=== PATIENT | male | born 1965 | race Caucasian/White ===

== ENCOUNTER 2023-11-11 23:18 | Inpatient (IN) | payer MEDICAID, OTHER ==
--- NOTE | 2023-11-12 01:15 | ED ---
Psych HPI - General Source: EMS, RN notes reviewed, old records reviewed Mode of arrival: EMS Limitations: no limitations - History of Present Illness MD Complaint: suicidal ideation, feels depressed, other (Petition) Associated Psychiatric Symptoms: none History of same: Yes Quality: constant Improves With: none Worsens With: none Context: significant life stressor Associated Symptoms: denies other symptoms Treatments Prior to Arrival: placed on mental health hold If Self Harm: admits thoughts of self harm <Vinod Mann - Last Filed: 11/12/23 01:56> <Vinod Malave - Last Filed: 11/12/23 12:14> - General Chief Complaint: Psychiatric Symptoms Stated Complaint: sucidial-mental health Time Seen by Provider: 11/11/23 23:49 - History of Present Illness Initial Comments: This is a 58-year-old male to ER for evaluation of psychiatric illness patient is presenting under petition for psychiatric evaluation and treatment (Vinod Cantu) - Related Data Allergies Allergy/AdvReac Type Severity Reaction Status Date / Time No Known Allergies Allergy Verified 11/11/23 23:32 Review of Systems ROS Other: All systems not noted in ROS Statement are negative. <Vinod Mann - Last Filed: 11/12/23 01:56> ROS Other: All systems not noted in ROS Statement are negative. <Vinod Malave - Last Filed: 11/12/23 12:14> ROS Statement: Those systems with pertinent positive or pertinent negative responses have been documented in the HPI. Past Medical History Past Medical History: No Reported History History of Any Multi-Drug Resistant Organisms: None Reported Past Surgical History: Orthopedic Surgery Past Psychological History: Depression Smoking Status: Never smoker Past Alcohol Use History: Occasional Past Drug Use History: None Reported <Vinod Mann - Last Filed: 11/12/23 01:56> General Exam Limitations: no limitations General appearance: alert, in no apparent distress Head exam: Present: atraumatic, normocephalic, normal inspection Eye exam: Present: normal appearance, PERRL, EOMI. Absent: scleral icterus, conjunctival injection, periorbital swelling ENT exam: Present: normal exam, mucous membranes moist Neck exam: Present: normal inspection. Absent: tenderness, meningismus, lymphadenopathy Respiratory exam: Present: normal lung sounds bilaterally. Absent: respiratory distress, wheezes, rales, rhonchi, stridor Cardiovascular Exam: Present: regular rate, normal rhythm, normal heart sounds. Absent: systolic murmur, diastolic murmur, rubs, gallop, clicks GI/Abdominal exam: Present: soft, normal bowel sounds. Absent: distended, tenderness, guarding, rebound, rigid Extremities exam: Present: normal inspection, full ROM, normal capillary refill. Absent: tenderness, pedal edema, joint swelling, calf tenderness Back exam: Present: normal inspection Neurological exam: Present: alert, oriented X3, CN II-XII intact Psychiatric exam: Present: normal affect, normal mood Skin exam: Present: warm, dry, intact, normal color. Absent: rash <Vinod Mann - Last Filed: 11/12/23 01:56> Course <Vinod Mann - Last Filed: 11/12/23 01:56> Vital Signs 11/11/23 11/12/23 23:30 07:54 Temperature 97.8 F Pulse Rate 91 68 Respiratory 18 16 Rate Blood Pressure 131/74 130/60 O2 Sat by Pulse 98 98 Oximetry - Reevaluation(s) Reevaluation #1: 11/12/23 01:56 Medical records reviewed (Vinod Mann) Reevaluation #2: 11/12/23 01:56 Medically cleared for psychiatric evaluation (Vinod Mann) Medical Decision Making - Lab Data Result diagrams: 11/12/23 10:02 11/12/23 10:02 <Vinod Malave - Last Filed: 11/12/23 12:14> - Medical Decision Making Was patient admitted / discharged? Hospital course, mention meds given and route, prescriptions, significant lab abnormalities, going to OR and other pertinent info. @ -Patient was signed out to me by Dr. Mann. EPS evaluated the patient and EPS spoke to me about the evaluation afterwards. They recommended admission. Patient was able to sign himself in Undiagnosed new problem with uncertain prognosis? @ -No Drug Therapy requiring intensive monitoring for toxicity (Heparin, Nitro, Insulin, Cardizem)? @ -No Were any procedures done? @ -No Diagnosis/symptom? @ -Depression, suicidal ideations Acute, or Chronic, or Acute on Chronic? @ -Acute Uncomplicated (without systemic symptoms) or Complicated (systemic symptoms)? @ -Complicated Side effects of treatment? @ -No Exacerbation, Progression, or Severe Exacerbation? @ -No Poses a threat to life or bodily function? How? (Chest pain, [place], [place], pneumonia, PE, COPD, DKA, ARF, appy, cholecystitis, CVA, Diverticulitis, Homicidal, Suicidal, threat to staff... and all critical care pts) @ -No (Vinod Malave) - Lab Data Lab Results 11/12/23 11/12/23 11/12/23 Range/Units 10:02 10:02 10:02 WBC 5.4 (3.8-10.6) k/uL RBC 4.30 (4.30-5.90) m/uL Hgb 12.2 L (13.0-17.5) gm/dL Hct 38.6 L (39.0-53.0) % MCV 89.8 (80.0-100.0) fL MCH 28.5 (25.0-35.0) pg MCHC 31.7 (31.0-37.0) g/dL RDW 13.9 (11.5-15.5) % Plt Count 194 (150-450) k/uL MPV 7.2 Neutrophils % (Manual) 76 % Lymphocytes % (Manual) 11 % Monocytes % (Manual) 12 % Eosinophils % (Manual) 1 % Neutrophils # (Manual) 4.10 (1.3-7.7) k/uL Lymphocytes # (Manual) 0.59 L (1.0-4.8) k/uL Monocytes # (Manual) 0.65 (0-1.0) k/uL Eosinophils # (Manual) 0.05 (0-0.7) k/uL Nucleated RBCs 0 (0-0) /100 WBC Manual Slide Review Performed RBC Morphology Normal Sodium 142 (137-145) mmol/L Potassium 3.9 (3.5-5.1) mmol/L Chloride 107 (98-107) mmol/L Carbon Dioxide 21 L (22-30) mmol/L Anion Gap 14 mmol/L BUN 11 (9-20) mg/dL Creatinine 0.64 L (0.66-1.25) mg/dL Est GFR (CKD-EPI)AfAm >90 (>60 ml/min/1.73 sqM) Est GFR (CKD-EPI)NonAf >90 (>60 ml/min/1.73 sqM) Glucose 109 H (74-99) mg/dL Calcium 9.3 (8.4-10.2) mg/dL Total Bilirubin 0.6 (0.2-1.3) mg/dL AST 41 (17-59) U/L ALT 27 (4-49) U/L Alkaline Phosphatase 117 (38-126) U/L Total Protein 7.4 (6.3-8.2) g/dL Albumin 4.6 (3.5-5.0) g/dL Urine Color Light Yellow Urine Appearance Clear (Clear) Urine pH 7.5 (5.0-8.0) Ur Specific [place] 1.016 (1.001-1.035) Urine Protein Negative (Negative) Urine Glucose (UA) Negative (Negative) Urine Ketones Trace H (Negative) Urine Blood Negative (Negative) Urine Nitrite Negative (Negative) Urine Bilirubin Negative (Negative) Urine Urobilinogen <2.0 (<2.0) mg/dL Ur Leukocyte Esterase Negative (Negative) Influenza Type A (PCR) (Not Detectd) Influenza Type B (PCR) (Not Detectd) RSV (PCR) (Not Detectd) SARS-CoV-2 (PCR) (Not Detectd) 11/12/23 Range/Units 10:02 WBC (3.8-10.6) k/uL RBC (4.30-5.90) m/uL Hgb (13.0-17.5) gm/dL Hct (39.0-53.0) % MCV (80.0-100.0) fL MCH (25.0-35.0) pg MCHC (31.0-37.0) g/dL RDW (11.5-15.5) % Plt Count (150-450) k/uL MPV Neutrophils % (Manual) % Lymphocytes % (Manual) % Monocytes % (Manual) % Eosinophils % (Manual) % Neutrophils # (Manual) (1.3-7.7) k/uL Lymphocytes # (Manual) (1.0-4.8) k/uL Monocytes # (Manual) (0-1.0) k/uL Eosinophils # (Manual) (0-0.7) k/uL Nucleated RBCs (0-0) /100 WBC Manual Slide Review RBC Morphology Sodium (137-145) mmol/L Potassium (3.5-5.1) mmol/L Chloride (98-107) mmol/L Carbon Dioxide (22-30) mmol/L Anion Gap mmol/L BUN (9-20) mg/dL Creatinine (0.66-1.25) mg/dL Est GFR (CKD-EPI)AfAm (>60 ml/min/1.73 sqM) Est GFR (CKD-EPI)NonAf (>60 ml/min/1.73 sqM) Glucose (74-99) mg/dL Calcium (8.4-10.2) mg/dL Total Bilirubin (0.2-1.3) mg/dL AST (17-59) U/L ALT (4-49) U/L Alkaline Phosphatase (38-126) U/L Total Protein (6.3-8.2) g/dL Albumin (3.5-5.0) g/dL Urine Color Urine Appearance (Clear) Urine pH (5.0-8.0) Ur Specific [place] (1.001-1.035) Urine Protein (Negative) Urine Glucose (UA) (Negative) Urine Ketones (Negative) Urine Blood (Negative) Urine Nitrite (Negative) Urine Bilirubin (Negative) Urine Urobilinogen (<2.0) mg/dL Ur Leukocyte Esterase (Negative) Influenza Type A (PCR) Not Detected (Not Detectd) Influenza Type B (PCR) Not Detected (Not Detectd) RSV (PCR) Not Detected (Not Detectd) SARS-CoV-2 (PCR) Not Detected (Not Detectd) Disposition <Vinod Mann - Last Filed: 11/12/23 01:56> Time of Disposition: 11:26 <Vinod Malave - Last Filed: 11/12/23 12:14> Clinical Impression: Depression, Suicidal ideation Disposition: TRANSFER TO PSYCH HOSP/UNIT Referrals: George Branard MD [Primary Care Provider] - 1-2 days
[2023-11-12 10:32] LABS: HCT 38.6 % (39.0-53.0); HGB 12.2 gm/dL (13.0-17.5); MCH 28.5 pg (25.0-35.0); MCHC 31.7 g/dL (31.0-37.0); MCV 89.8 fL (80.0-100.0); Mean Platelet Volume 7.2; Platelet Count 194 k/uL (150-450); RDW 13.9 % (11.5-15.5); WBC 5.4 k/uL (3.8-10.6)
[2023-11-12 10:42] LABS: ALT 27 U/L (4-49); AST 41 U/L (17-59); African American GFR (CKD) >90 (>60 ml/min/1.73 sqM); Albumin 4.6 g/dL (3.5-5.0); Alkaline Phosphatase 117 U/L (38-126); Anion Gap 14 mmol/L; Blood Urea Nitrogen 11 mg/dL (9-20); Calcium 9.3 mg/dL (8.4-10.2); Carbon Dioxide 21 mmol/L (22-30); Chloride 107 mmol/L (98-107); Glucose 109 mg/dL (74-99); Non-African American GFR(CKD) >90 (>60 ml/min/1.73 sqM); Potassium 3.9 mmol/L (3.5-5.1); Sodium 142 mmol/L (137-145); Total Bilirubin 0.6 mg/dL (0.2-1.3); Total Protein 7.4 g/dL (6.3-8.2)
[2023-11-12 10:45] LABS: Appearance,Urine Clear (Clear); Bilirubin,Urine Negative (Negative); Blood,Urine Negative (Negative); Color,Urine Light Yellow; Glucose,Urine (UA) Negative (Negative); Ketones,Urine Trace (Negative); Leukocyte Esterase,Urine Negative (Negative); Nitrite,Urine Negative (Negative); PH, Urine 7.5 (5.0-8.0); Protein,Urine Negative (Negative); Specific Gravity,Urine 1.016 (1.001-1.035); Urobilinogen,Urine <2.0 mg/dL (<2.0)
[2023-11-12 11:28] LABS: Eosinophils # (M) 0.05 k/uL (0-0.7); Lymphocytes # (M) 0.59 k/uL (1.0-4.8); Monocytes # (M) 0.65 k/uL (0-1.0); Neutrophils % (M) 76 %; Nucleated Red Blood Cells 0 /100 WBC (0-0); RBC Morphology Normal; Total Cells Counted 100
[2023-11-12] MEDS ORDERED: LORazepam 2 MG/ML INJ IM PRN (14:49)
[2023-11-12] MEDS ORDERED: ACETAMINOPHEN TAB 325 MG TAB PO PRN (14:49)
[2023-11-12] MEDS ORDERED: MAG HYDROX/AL HYDROX/SIMETH 30 ML CUP PO PRN (14:49)
[2023-11-12] MEDS ORDERED: MAGNESIUM HYDROXIDE 2,400 MG/30 ML CUP PO PRN (14:49)
[2023-11-12] MEDS ORDERED: LORazepam 1 MG TAB PO PRN (14:49)
[2023-11-12] MEDS ORDERED: IBUPROFEN 600 MG TAB PO PRN (14:49)
[2023-11-12] MEDS ORDERED: FUROSEMIDE 20 MG TAB PO PRN (15:04)
[2023-11-12] MEDS: LISINOPRIL-HCTZ 20-25 MG 1 EACH TAB PO SCH (16:53)
[2023-11-12] MEDS: NICOTINE 14MG/24HR PATCH TRANSDERM SCH (16:53)
[2023-11-12] MEDS: DULoxetine HCL 30 MG CAPSULE.DR PO SCH (16:55)
[2023-11-12] MEDS: FOLIC ACID 1 MG TAB PO SCH (16:55)
[2023-11-12] MEDS: amLODIPine 10 MG TAB PO SCH (16:55)
[2023-11-12] MEDS: ATORVASTATIN 10 MG TAB PO SCH (20:04)
[2023-11-12] MEDS: GABAPENTIN 400 MG CAP PO SCH (20:04)
[2023-11-13 00:04] LABS: Amphetamine Screen,Urine Not Detected (NotDetected); Barbiturate Screen,Urine Not Detected (NotDetected); Benzodiazepines Screen,Urine Not Detected (NotDetected); Cocaine Screen,Urine Not Detected (NotDetected); Methadone Screen, Urine Not Detected (NotDetected); Opiate Screen,Urine Detected (NotDetected); Oxycodone Screen, Urine Not Detected (NotDetected); Phencyclidine Screen,Urine Not Detected (NotDetected); Tricyclic Antidepressant,Urine Not Detected (NotDetected); Urn Cannabinoid Scrn Not Detected (NotDetected)
[2023-11-13] MEDS ORDERED: CYCLOBENZAPRINE 5 MG TAB PO PRN (12:22)
--- NOTE | 2023-11-13 12:31 | P.MDCNMH ---
History of Present Illness H&P Date: 11/13/23 Chief Complaint: Suicidal ideation * 58-year-old gentleman with past medical history significant for hypertension, history of depression, presents to the emergency department for psychiatric illness and evaluation. Patient presented at the [facility] for psychiatric evaluation * Patient was admitted to behavioral unit. Blood work obtained showed WBC of 5.4 hemoglobin 12.2 platelet count of 194 * Serum chemistry obtained sodium 142 potassium 3.9 At 21 BUN 11 creatinine 0.64 liver profile within normal limits TSH 1.7160 * Urinalysis obtained showed trace amount of ketones, urine drug screen positive for opioids * Patient tested negative for influenza, coronavirus and RSV REVIEW OF SYSTEMS: Depressed mood CONSTITUTIONAL: No fever, no malaise, no fatigue. HEENT: No recent visual problems or hearing problems. Denied any sore throat. CARDIOVASCULAR: No chest pain, orthopnea, PND, no palpitations, no syncope. PULMONARY: No shortness of breath, no cough, no hemoptysis. GASTROINTESTINAL: No diarrhea, no nausea, no vomiting, no abdominal pain. NEUROLOGICAL: No headaches, no weakness, no numbness. HEMATOLOGICAL: Denies any bleeding or petechiae. GENITOURINARY: Denies any burning micturition, frequency, or urgency. MUSCULOSKELETAL/RHEUMATOLOGICAL: Denies any joint pain, swelling, or any muscle pain. ENDOCRINE: Denies any polyuria or polydipsia. PHYSICAL EXAMINATION: GENERAL: The patient is alert and oriented x3, not in any acute distress. Well developed, well nourished. HEENT: Pupils are round and equally reacting to light. EOMI. CARDIOVASCULAR: S1 and S2 present. Tachycardia PULMONARY: Chest is clear to auscultation, no wheezing or crackles. ABDOMEN: Soft, nontender, nondistended, normoactive bowel sounds. No palpable organomegaly. MUSCULOSKELETAL: No joint swelling or deformity. EXTREMITIES: No cyanosis, clubbing, or pedal edema. NEUROLOGICAL: Gross neurological examination did not reveal any focal deficits. SKIN: No rashes. Assessment and plan * Depression with suicidal ideation * Hypertension * Dyslipidemia * Chronic neuropathic pain * Degenerative disease of spine with chronic back pain * In regards to history of depression continue to manage in behavioral health unit, maintain maximum safety precautions * Regards to history of hypertension continue home regimen, medication rec onciliation completed * Regards to chronic neuropathic pain continue home regimen Past Medical History Past Medical History: Hyperlipidemia, Hypertension History of Any Multi-Drug Resistant Organisms: None Reported Past Surgical History: Back Surgery, Orthopedic Surgery Additional Past Surgical History / Comment(s): pt reports having 4 surgeries on his spine over several years, but cannot recall when he had the last surgery. pt also reports cyst removal on right moravian but is unable to recall when. pt reports removal of left breast tissue as well as removal of compound nevus on h is back in 1991. Past Anesthesia/Blood Transfusion Reactions: No Reported Reaction Past Psychological History: Depression Smoking Status: Former smoker Past Alcohol Use History: Occasional Additional Past Alcohol Use History / Comment(s): pt reports drinking for the past 2 - 3 days after 5 months without ETOH. Past Drug Use History: None Reported - Past Family History Mother Family Medical History: Diabetes Mellitus, Hypertension, Renal Disease Additional Family Medical History / Comment(s): pt reports that mother has history significant for cellulitis, diabetes mellitus, HTN, and renal failure. Father Family Medical History: Cancer, Hypertension Additional Family Medical History / Comment(s): pt reports that father had history significant for HTN, esophageal cancer, and prostate cancer. pt reports father is from MRSA infection 11/09/2006 Medications and Allergies Home Medications Medication Instructions Recorded Confirmed Type Cyclobenzaprine [Flexeril] 5 mg PO DAILY 11/12/23 11/12/23 History DULoxetine HCL [Cymbalta] 30 mg PO DAILY 11/12/23 11/12/23 History Folic Acid 1 mg PO DAILY 11/12/23 11/12/23 History Furosemide [Lasix] 20 mg PO DAILY PRN 11/12/23 11/12/23 History Gabapentin [Neurontin] 800 mg PO BID 11/12/23 11/12/23 History Lisinopril-Hctz 20-25 mg 1 tab PO DAILY 11/12/23 11/12/23 History [Zestoretic 20-25] Simvastatin [Zocor] 10 mg PO HS 11/12/23 11/12/23 History amLODIPine [Norvasc] 10 mg PO DAILY 11/12/23 11/12/23 History Allergies Allergy/AdvReac Type Severity Reaction Status Date / Time No Known Allergies Allergy Verified 11/12/23 12:46 Physical Exam Vitals: Vital Signs Temp Pulse Resp BP Pulse Ox 11/13/23 08:13 115 H 129/76 11/12/23 16:00 98.2 F 111 H 14 154/83 97 Intake and Output 11/12/23 11/13/23 11/13/23 22:59 06:59 14:59 Other: Weight 128.622 kg Cranial Nerve Examination - Cranial Nerves Cranial Nerve II- Optic: Intact Cranial Nerve III- Oculomotor: Intact Cranial Nerve IV- Trochlear: Intact Cranial Nerve V- Trigeminal: Intact Cranial Nerve - Abducens: Intact Cranial Nerve VII- Facial: Intact Cranial Nerve VIII- Auditory: Intact Cranial Nerve IX- Glossopharyngeal: Intact Cranial Nerve X- Vagus: Intact Cranial Nerve XI- Accessory: Intact Cranial Nerve XII- Hypoglossal: Intact Results CBC & Chem 7: 11/12/23 10:02 11/12/23 10:02 Labs: Abnormal Lab Results - Last 24 Hours (Table) 11/12/23 11/12/23 11/12/23 Range/Units 10:02 10:02 10:02 Hgb 12.2 L (13.0-17.5) gm/dL Hct 38.6 L (39.0-53.0) % Lymphocytes # (Manual) 0.59 L (1.0-4.8) k/uL Carbon Dioxide 21 L (22-30) mmol/L Creatinine 0.64 L (0.66-1.25) mg/dL Glucose 109 H (74-99) mg/dL Urine Ketones Trace H (Negative) Urine Opiates Screen (NotDetected) 11/12/23 Range/Units 22:02 Hgb (13.0-17.5) gm/dL Hct (39.0-53.0) % Lymphocytes # (Manual) (1.0-4.8) k/uL Carbon Dioxide (22-30) mmol/L Creatinine (0.66-1.25) mg/dL Glucose (74-99) mg/dL Urine Ketones (Negative) Urine Opiates Screen Detected H (NotDetected)
--- NOTE | 2023-11-13 13:01 | P.HP ---
Psychiatric H&P - . H&P Date: 11/13/23 History & Physical: Allergies Allergy/AdvReac Type Severity Reaction Status Date / Time No Known Allergies Allergy Verified 11/12/23 12:46 Vital Signs Temp 98.2 F 11/12/23 16:00 Pulse 115 H 11/13/23 08:13 Resp 14 11/12/23 16:00 BP 129/76 11/13/23 08:13 Pulse Ox 97 11/12/23 16:00 FiO2 Intake & Output 11/12/23 11/13/23 11/13/23 18:59 06:59 18:59 Weight 128.622 kg Laboratory Last Values WBC 5.4 k/uL (3.8-10.6) 11/12/23 10:02 RBC 4.30 m/uL (4.30-5.90) 11/12/23 10:02 Hgb 12.2 gm/dL (13.0-17.5) L 11/12/23 10:02 Hct 38.6 % (39.0-53.0) L 11/12/23 10:02 MCV 89.8 fL (80.0-100.0) 11/12/23 10:02 MCH 28.5 pg (25.0-35.0) 11/12/23 10:02 MCHC 31.7 g/dL (31.0-37.0) 11/12/23 10:02 RDW 13.9 % (11.5-15.5) 11/12/23 10:02 Plt Count 194 k/uL (150-450) 11/12/23 10:02 MPV 7.2 11/12/23 10:02 Neutrophils % (Manual) 76 % 11/12/23 10:02 Lymphocytes % (Manual) 11 % 11/12/23 10:02 Monocytes % (Manual) 12 % 11/12/23 10:02 Eosinophils % (Manual) 1 % 11/12/23 10:02 Neutrophils # (Manual) 4.10 k/uL (1.3-7.7) 11/12/23 10:02 Lymphocytes # (Manual) 0.59 k/uL (1.0-4.8) L 11/12/23 10:02 Monocytes # (Manual) 0.65 k/uL (0-1.0) 11/12/23 10:02 Eosinophils # (Manual) 0.05 k/uL (0-0.7) 11/12/23 10:02 Nucleated RBCs 0 /100 WBC (0-0) 11/12/23 10:02 Manual Slide Review Performed 11/12/23 10:02 RBC Morphology Normal 11/12/23 10:02 Sodium 142 mmol/L (137-145) 11/12/23 10:02 Potassium 3.9 mmol/L (3.5-5.1) 11/12/23 10:02 Chloride 107 mmol/L (98-107) 11/12/23 10:02 Carbon Dioxide 21 mmol/L (22-30) L 11/12/23 10:02 Anion Gap 14 mmol/L 11/12/23 10:02 BUN 11 mg/dL (9-20) 11/12/23 10:02 Creatinine 0.64 mg/dL (0.66-1.25) L 11/12/23 10:02 Est GFR (CKD-EPI)AfAm >90 (>60 ml/min/1.73 sqM) 11/12/23 10:02 Est GFR (CKD-EPI)NonAf >90 (>60 ml/min/1.73 sqM) 11/12/23 10:02 Glucose 109 mg/dL (74-99) H 11/12/23 10:02 Calcium 9.3 mg/dL (8.4-10.2) 11/12/23 10:02 Total Bilirubin 0.6 mg/dL (0.2-1.3) 11/12/23 10:02 AST 41 U/L (17-59) 11/12/23 10:02 ALT 27 U/L (4-49) 11/12/23 10:02 Alkaline Phosphatase 117 U/L (38-126) 11/12/23 10:02 Total Protein 7.4 g/dL (6.3-8.2) 11/12/23 10:02 Albumin 4.6 g/dL (3.5-5.0) 11/12/23 10:02 TSH 1.160 mIU/L (0.465-4.680) 11/12/23 10:02 Urine Color Light Yellow 11/12/23 10:02 Urine Appearance Clear (Clear) 11/12/23 10:02 Urine pH 7.5 (5.0-8.0) 11/12/23 10:02 Ur Specific [place] 1.016 (1.001-1.035) 11/12/23 10:02 Urine Protein Negative (Negative) 11/12/23 10:02 Urine Glucose (UA) Negative (Negative) 11/12/23 10:02 Urine Ketones Trace (Negative) H 11/12/23 10:02 Urine Blood Negative (Negative) 11/12/23 10:02 Urine Nitrite Negative (Negative) 11/12/23 10:02 Urine Bilirubin Negative (Negative) 11/12/23 10:02 Urine Urobilinogen <2.0 mg/dL (<2.0) 11/12/23 10:02 Ur Leukocyte Esterase Negative (Negative) 11/12/23 10:02 Urine Opiates Screen Detected (NotDetected) H 11/12/23 22:02 Ur Oxycodone Screen Not Detected (NotDetected) 11/12/23 22:02 Urine Methadone Screen Not Detected (NotDetected) 11/12/23 22:02 Ur Barbiturates Screen Not Detected (NotDetected) 11/12/23 22:02 U Tricyclic Antidepress Not Detected (NotDetected) 11/12/23 22:02 Ur Phencyclidine Scrn Not Detected (NotDetected) 11/12/23 22:02 Ur Amphetamines Screen Not Detected (NotDetected) 11/12/23 22:02 U Methamphetamines Scrn Not Detected (NotDetected) 11/12/23 22:02 U Benzodiazepines Scrn Not Detected (NotDetected) 11/12/23 22:02 Urine Cocaine Screen Not Detected (NotDetected) 11/12/23 22:02 U Marijuana (THC) Screen Not Detected (NotDetected) 11/12/23 22:02 Influenza Type A (PCR) Not Detected (Not Detectd) 11/12/23 10:02 Influenza Type B (PCR) Not Detected (Not Detectd) 11/12/23 10:02 RSV (PCR) Not Detected (Not Detectd) 11/12/23 10:02 SARS-CoV-2 (PCR) Not Detected (Not Detectd) 11/12/23 10:02 11/13/23 08:52 IDENTIFYING DATA: Patient is a 58-year-old male. Lives in a house with his mother. Single, no children. Unemployed. 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 HPI: Patient presented to the hospital on 11/11. As per EPS note, "Cl sitting in bed, A/O x4 brought in with PET via PD due SI with plan to use a firearm. Firearm was found by PD loaded. Cl reports being brought in alongside of their mother who is being admitted medically. 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 These conditions have made life overwhelming for the Cl. Cl's mother verified that cl made statement to commit suicide in the backyard per the PET. Cl presents depressed, anxious, guarded, poor eye contact, flat affect, overwhelmed, reports self medicating pain with alcohol use, recent relapse following 5 mo's sober reported by cl. Cl concerned about the effects of a admission on their overwhelming situation. " I made a mistake, there's no excuse for my behavior and saying those things." Cl reports getting along with their Mother "good a majority of the time, but this last week she's been very harsh with me." Cl's Mothers medical issues require 24 hr care and cl reports they are the only one who provides it." Upon todays assessment he states his stressors are constant back pain for many years, and the health of his mother, and being the only one to care for her. His mother has been hostile toward him lately, due to her declining health, and he states that he just said something stupid to her, because she is accusing him of wanting to get rid of her by him putting her in the hospital. He admits that he comprehends that he should not have said the things he said. He was on the phone with his mothers nurse, and his mother had yelled in the background that Brooks was suicidal, and the nurse called the police. Police showed up, and EMS, and brought patient to the hospital. Patient states the today his mood is "stressed" due to all the things that he will have to do when he gets home. He claims he is not anxious, however, he is concerned about the health of his mother. Recently, he claims his sleep has been broken, due to caring for his mother. He states his appetite is good. Patient denies any suicidal or homicidal ideations intent or plan. At this time patient denies any auditory or visual hallucinations. Patient denies any flight of ideas racing thoughts and increased in goal directed behavior. Patient admits to only drinking, no drugs or cigarettes. No withdraw symptoms. PAST PSYCHIATRIC HISTORY: Patient takes Cymbalta, prescribed by his PCP, denies any previous admissions, denies any followup outpatient. Denies previous suicide attempt PMH: As per ER note ALLERGIES: as per EMR CHEMICAL DEPENDENCY HISTORY: as per HPI FAMILY PSYCHIATRIC/SUBSTANCE USE HISTORY: denies SOCIAL HISTORY: Patient was born and raised in [place], [place]. High school graduate, BA Degree. Used to work on [employer], [employer]. Currently unemployed . Lives in his house with his mother. Single, no children. Denies current legal issues. MENTAL STATUS EXAM: General Appearance: Patient appears to be stated age, is alert, directable, and attempts to cooperate. Patient appears to have adequate hygiene and grooming. Tall , balding, facial hair Behavior: Patient is seated without any agitated behavior. Apologetic Speech: Patient's speech is fluent and nonpressured. Mood/Affect: Patient reports their mood is stressed, affect is congruent and constricted. Suicidality/Homicidality: Patient denies having any homicidal ideation intent or plan. Denies any suicidal ideations intent or plan Perceptions: Patient denies any visual hallucinations and denies any auditory hallucinations Though content/process: There is no evidence of any delusional thought content and thought process is linear and goal-directed. Memory and concentration: AOX3, grossly intact for the purposes of this session. Can spell "WORLD" backwards Judgment and insight: poor STRENGTHS/WEAKNESSES: strength is that patient is resilient. Weakness is that patient has poor judgment and is impulsive INTELLECT: average IMPRESSIONS: major depressive disorder, without psychotic features adjustment disorder alcohol use disorder pain disorder with psychological factors PLAN: -Patient is admitted under voluntary status to [facility] for stabilization of psychiatric symptoms and safety. Patient has signed adult voluntary form and medication consent and is placed in patient's chart. -Medications : Will start patient on Cymbalta 60mg daily for depression/anxiety trazodone 25mg qhs for sleep/mood -Ativan and Haldol PRN for agitation/aggression -CIWA q6 hours -Patient was counselled on substance abuse and desired to cut back on use -Patient was informed of the risks, benefits and side effects of the medication and patient verbally consented to taking the medications. -Internal Medicine consult to perform medical evaluation and physical. -NRT -non smoker -SW on board for discharge planning. Encourage patient to participate in groups to work on coping skills. 11/13/23 12:11 11/13/23 13:00
[2023-11-13] MEDS ORDERED: LORazepam 2 MG/ML INJ IM PRN (13:29)
[2023-11-13] MEDS ORDERED: LORazepam 1 MG TAB PO PRN (13:29)
[2023-11-13] MEDS: traZODone HCL 50 MG TAB PO SCH (21:29)
[2023-11-14] MEDS: DULoxetine HCL 60 MG CAPSULE.DR PO SCH (08:26)
--- NOTE | 2023-11-14 08:39 | P.PN ---
Progress Note - Text Progress Note Date: 11/14/23 Interval History: Patient was seen wandering the hallways and was directable and agreeable to ej valenzuela with leader writer in the office. Patient states that he is doing pretty good today. He claims he slept pretty well last night, however, he is a light sleeper, and his room mate woke him a couple times last night. Patient states his appetite is good. Patient offers no other complaints. Patient has gone to a couple groups, however, he states that they are a little hostile for his taste. Hydraulic Rock Drill Operator encouraged patient to try to still attend the groups. At this time patient denies any suicidal or homicidal ideations, intent or plan. Patient denies any auditory, visual hallucinations and denies any paranoia or delusions. Patient denies any side effects from the medications and has been compliant with meds. MENTAL STATUS EXAM: General Appearance: Patient appears to be stated age, is alert, directable, and attempts to cooperate. Patient appears to have adequate hygiene and grooming. Tall , balding, facial hair Behavior: Patient is seated without any agitated behavior. Apologetic Speech: Patient's speech is fluent and nonpressured. Mood/Affect: Patient reports their mood is stressed, affect is congruent and constricted. mildly improving Suicidality/Homicidality: Patient denies having any homicidal ideation intent or plan. Denies any suicidal ideations intent or plan Perceptions: Patient denies any visual hallucinations and denies any auditory hallucinations Though content/process: There is no evidence of any delusional thought content and thought process is linear and goal-directed. Memory and concentration: AOX3, grossly intact for the purposes of this session. Judgment and insight: poor, mildly improving IMPRESSIONS: major depressive disorder, without psychotic features adjustment disorder alcohol use disorder pain disorder with psychological factors PLAN: -Patient is admitted under voluntary status to MHU for stabilization of psychiatric symptoms and safety. Patient has signed adult voluntary form and medication consent and is placed in patient's chart. -Medications : continue with Cymbalta 60mg daily for depression/anxiety trazodone 25mg qhs for sleep/mood -Ativan and Haldol PRN for agitation/aggression -CIWA q6 hours -SW on board for discharge planning. Encourage patient to participate in groups to work on coping skills. Possible discharge Sunday, if patient continues to improve.
[2023-11-14] MEDS ORDERED: CYCLOBENZAPRINE 5 MG TAB PO SCH (09:00)
[2023-11-14 11:02] LABS: African American GFR (CKD) >90 (>60 ml/min/1.73 sqM); Anion Gap 13 mmol/L; Blood Urea Nitrogen 19 mg/dL (9-20); Calcium 9.6 mg/dL (8.4-10.2); Carbon Dioxide 22 mmol/L (22-30); Chloride 104 mmol/L (98-107); Glucose 128 mg/dL (74-99); Non-African American GFR(CKD) 79 (>60 ml/min/1.73 sqM); Potassium 3.8 mmol/L (3.5-5.1); Sodium 139 mmol/L (137-145)
--- NOTE | 2023-11-15 20:18 | P.PN ---
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 Patient denies any auditory, visual hallucinations and denies any paranoia or delusions. Patient denies any side effects from the medications and has been compliant with meds. Patient reports that his mother is currently in the hospital is improving also MENTAL STATUS EXAM: General Appearance: Patient appears to be stated age, is alert, directable, and attempts to cooperate. Patient appears to have adequate hygiene and grooming. Tall , balding, facial hair Behavior: Patient is seated without any agitated behavior. Speech: Patient's speech is fluent and nonpressured. Mood/Affect: Patient reports his mood is improved , affect is congruent and constricted. mildly improving Suicidality/Homicidality: Patient denies having any homicidal ideation intent or plan. Denies any suicidal ideations intent or plan Perceptions: Patient denies any visual hallucinations and denies any auditory hallucinations Though content/process: There is no evidence of any delusional thought content and thought process is linear and goal-directed. Memory and concentration: AOX3, grossly intact for the purposes of this session. Judgment and insight: poor, mildly improving IMPRESSIONS: major depressive disorder, without psychotic features adjustment disorder alcohol use disorder pain disorder with psychological factors PLAN: -Patient is admitted under voluntary status to MHU for stabilization of psychiatric symptoms and safety. Patient has signed adult voluntary form and medication consent and is placed in patient's chart. -Medications : continue with Cymbalta 60mg daily for depression/anxiety trazodone 25mg qhs for sleep/mood -Ativan and Haldol PRN for agitation/aggression -CIWA q6 hours -SW on board for discharge planning. Encourage patient to participate in groups to work on coping skills. Possible discharge Sunday, if patient continues to improve. silvio thomas MD Objective - Vital Signs Vital signs: Vital Signs Temp 98.2 F 11/15/23 07:01 Pulse 117 H 11/15/23 08:31 Resp 18 11/15/23 07:01 BP 152/69 11/15/23 08:31 Pulse Ox 97 11/15/23 07:01 FiO2 - Labs CBC & Chem 7: 11/12/23 10:02 11/14/23 10:11
[2023-11-16 09:42] VITALS: PULSE 111; RESP 18; TEMP 97.2
--- NOTE | 2023-11-16 09:52 | P.DS ---
Providers Date of admission: 11/12/23 14:47 Expected date of discharge: 11/16/23 Attending physician: Juan Antonio Gordon MD Consults: 11/12/23 14:49 Consult Physician Routine Consulting Provider: [facility] Consult Reason/Comments: history and physical/medical management Do you want consulting provider notified?: Yes Primary care physician: George Barnard - Discharge Diagnosis(es) (1) Major depressive disorder without psychotic features Current Visit: Yes Status: Acute Priority: High (2) Adjustment disorder Current Visit: Yes Status: Acute Priority: Medium (3) Alcohol use disorder Current Visit: Yes Status: Acute Priority: Medium (4) Pain disorder with psychological factors Current Visit: Yes Status: Acute Priority: Medium Hospital Course: Admission HPI: Admission note was completed by appeals writer "Patient presented to the hospital on 11/11. As per EPS note, "Cl sitting in bed, A/O x4 brought in with PET via PD due SI with plan to use a firearm. Firearm was found by PD loaded. Cl reports being brought in alongside of their mother who is being admitted medically. 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 These conditions have made life overwhelming for the Cl. Cl's mother verified that cl made statement to commit suicide in the backyard per the PET. Cl presents depressed, anxious, guarded, poor eye contact, flat affect, overwhelmed, reports self medicating pain with alcohol use, recent relapse following 5 mo's sober reported by cl. Cl concerned about the effects of a admission on their overwhelming situation. " I made a mistake, there's no excuse for my behavior and saying those things." Cl reports getting along with their Mother "good a majority of the time, but this last week she's been very harsh with me." Cl's Mothers medical issues require 24 hr care and cl reports they are the only one who provides it." Upon todays assessment he states his stressors are constant back pain for many years, and the health of his mother, and being the only one to care for her. His mother has been hostile toward him lately, due to her declining health, and he states that he just said something stupid to her, because she is accusing him of wanting to get rid of her by him putting her in the hospital. He admits that he comprehends that he should not have said the things he said. He was on the phone with his mothers nurse, and his mother had yelled in the background that Brooks was suicidal, and the nurse called the police. Police showed up, and EMS, and brought patient to the hospital. Patient states the today his mood is "stressed" due to all the things that he will have to do when he gets home. He claims he is not anxious, however, he is concerned about the health of his mother. Recently, he claims his sleep has been broken, due to caring for his mother. He states his appetite is good. Patient denies any suicidal or homicidal ideations intent or plan. At this time patient denies any auditory or visual hallucinations. Patient denies any flight of ideas racing thoughts and increased in goal directed behavior. Patient admits to only drinking, no drugs or cigarettes. No withdraw symptoms." Hospital course: Upon admission to the unit patient was [directable and agreeable to commence treatment and signed adult voluntary form. Patient got along well with other patients on the unit and followed unit protocol. Patient was compliant with the medications and denied any side effects throughout hospital course. Patient was started on Cymbalta and increase the dose of 60 mg daily for depression/anxiety/pain, trazodone was started at a low dose 25 mg nightly for sleep/mood. Patient was also on CIWA protocol with as needed Ativan for alcohol withdrawal symptoms. Patient spoke of his stressors and engaged in therapy both group and individual. Patient was also seen by medical team for history and physical exam. Throughout the course of the hospitalization patient gradually improved with regards to mood, anxiety, sleep and became more future oriented with improved insight and judgment. On the day of discharge patient denied any suicidal or homicidal ideations intent or plan denied any auditory or visual hallucinations. Patient endorsed wanting to live for his health and family, taking care of his mother. The patient denied any access to guns or weapons. Patient denied any paranoia and did not endorse any delusions. Patient does have a significant history of substance abuse and was counseled on abstaining from all substances including alcohol and marijuana. Patient was offered however declined inpatient substance-abuse rehab. Patient elected to do outpatient substance use treatment program through [facility]. Patient was also counseled on the medications and need for regular compliance and was encouraged to follow-up with their outpatient appointment for mental health and also for primary care. Mental status exam: General Appearance: Patient appears to be tall, bald, stated age is alert, pleasant, and cooperative. Patient is in no acute distress and has improved hygiene and grooming Behavior: Patient is calmly seated without any agitated behavior. Speech: Patient's speech is fluent and nonpressured. Mood/Affect: Patient reports their mood is "good", affect is congruent and euthymic. Suicidality/Homicidality: Patient denies having any suicidal or homicidal ideation intent or plan. Perceptions: Patient denies any auditory or visual hallucinations. Though content/process: There is no evidence of any delusional thought content and thought process is linear and goal-directed. More future oriented Memory and concentration: AOX3, grossly intact for the purposes of this session. Can spell "WORLD" backwards correctly. Judgment and insight: improved with guarded prognosis Impression: major depressive disorder, without psychotic features adjustment disorder alcohol use disorder pain disorder with psychological factors Plan: -Continue with discharge today as patient has improved and stabilized psychiatrically and is not currently an imminent threat to himself and/or others. Patient will remain at chronically elevated risk for harm to self and/or others due to his impulsivity. -Continue medications: Cymbalta 60 mg daily for depression/anxiety, trazodone 25 mg nightly for sleep/mood. -Patient was counseled on the need for medication compliance and appropriate follow-up at mental health and also primary care for medical issues. Patient verbalized understanding and agreed. -Social work to help coordinate patient's discharge today. Social work also to arrange for patients follow up appointments with [facility] for psychiatric care along with follow up with primary care provider. -Patient counseled on abstaining from recreational drugs and marijuana and alcohol. Was informed/educated on the adverse effects on their physical and mental health. Patient verbally agreed and understood. Patient was offered substance abuse treatment however declined at this time. patient declined any anti cravings medications. -Patient was instructed to return to the hospital or seek immediate medical care if their psychiatric or medical symptoms do worsen or reoccur. Allergies Allergy/AdvReac Type Severity Reaction Status Date / Time No Known Allergies Allergy Verified 11/12/23 12:46 Laboratory Results WBC 5.4 k/uL (3.8-10.6) 11/12/23 10:02 RBC 4.30 m/uL (4.30-5.90) 11/12/23 10:02 Hgb 12.2 gm/dL (13.0-17.5) L 11/12/23 10:02 Hct 38.6 % (39.0-53.0) L 11/12/23 10:02 MCV 89.8 fL (80.0-100.0) 11/12/23 10:02 MCH 28.5 pg (25.0-35.0) 11/12/23 10:02 MCHC 31.7 g/dL (31.0-37.0) 11/12/23 10:02 RDW 13.9 % (11.5-15.5) 11/12/23 10:02 Plt Count 194 k/uL (150-450) 11/12/23 10:02 MPV 7.2 11/12/23 10:02 Neutrophils % (Manual) 76 % 11/12/23 10:02 Lymphocytes % (Manual) 11 % 11/12/23 10:02 Monocytes % (Manual) 12 % 11/12/23 10:02 Eosinophils % (Manual) 1 % 11/12/23 10:02 Neutrophils # (Manual) 4.10 k/uL (1.3-7.7) 11/12/23 10:02 Lymphocytes # (Manual) 0.59 k/uL (1.0-4.8) L 11/12/23 10:02 Monocytes # (Manual) 0.65 k/uL (0-1.0) 11/12/23 10:02 Eosinophils # (Manual) 0.05 k/uL (0-0.7) 11/12/23 10:02 Nucleated RBCs 0 /100 WBC (0-0) 11/12/23 10:02 Manual Slide Review Performed 11/12/23 10:02 RBC Morphology Normal 11/12/23 10:02 Sodium 139 mmol/L (137-145) 11/14/23 10:11 Potassium 3.8 mmol/L (3.5-5.1) 11/14/23 10:11 Chloride 104 mmol/L (98-107) 11/14/23 10:11 Carbon Dioxide 22 mmol/L (22-30) 11/14/23 10:11 Anion Gap 13 mmol/L 11/14/23 10:11 BUN 19 mg/dL (9-20) 11/14/23 10:11 Creatinine 1.04 mg/dL (0.66-1.25) 11/14/23 10:11 Est GFR (CKD-EPI)AfAm >90 (>60 ml/min/1.73 sqM) 11/14/23 10:11 Est GFR (CKD-EPI)NonAf 79 (>60 ml/min/1.73 sqM) 11/14/23 10:11 Glucose 128 mg/dL (74-99) H 11/14/23 10:11 Calcium 9.6 mg/dL (8.4-10.2) 11/14/23 10:11 Total Bilirubin 0.6 mg/dL (0.2-1.3) 11/12/23 10:02 AST 41 U/L (17-59) 11/12/23 10:02 ALT 27 U/L (4-49) 11/12/23 10:02 Alkaline Phosphatase 117 U/L (38-126) 11/12/23 10:02 Total Protein 7.4 g/dL (6.3-8.2) 11/12/23 10:02 Albumin 4.6 g/dL (3.5-5.0) 11/12/23 10:02 TSH 1.160 mIU/L (0.465-4.680) 11/12/23 10:02 Urine Color Light Yellow 11/12/23 10:02 Urine Appearance Clear (Clear) 11/12/23 10:02 Urine pH 7.5 (5.0-8.0) 11/12/23 10:02 Ur Specific Nichols 1.016 (1.001-1.035) 11/12/23 10:02 Urine Protein Negative (Negative) 11/12/23 10:02 Urine Glucose (UA) Negative (Negative) 11/12/23 10:02 Urine Ketones Trace (Negative) H 11/12/23 10:02 Urine Blood Negative (Negative) 11/12/23 10:02 Urine Nitrite Negative (Negative) 11/12/23 10:02 Urine Bilirubin Negative (Negative) 11/12/23 10:02 Urine Urobilinogen <2.0 mg/dL (<2.0) 11/12/23 10:02 Ur Leukocyte Esterase Negative (Negative) 11/12/23 10:02 Urine Opiates Screen Detected (NotDetected) H 11/12/23 22:02 Ur Oxycodone Screen Not Detected (NotDetected) 11/12/23 22:02 Urine Methadone Screen Not Detected (NotDetected) 11/12/23 22:02 Ur Barbiturates Screen Not Detected (NotDetected) 11/12/23 22:02 U Tricyclic Antidepress Not Detected (NotDetected) 11/12/23 22:02 Ur Phencyclidine Scrn Not Detected (NotDetected) 11/12/23 22:02 Ur Amphetamines Screen Not Detected (NotDetected) 11/12/23 22:02 U Methamphetamines Scrn Not Detected (NotDetected) 11/12/23 22:02 U Benzodiazepines Scrn Not Detected (NotDetected) 11/12/23 22:02 Urine Cocaine Screen Not Detected (NotDetected) 11/12/23 22:02 U Marijuana (THC) Screen Not Detected (NotDetected) 11/12/23 22:02 Influenza Type A (PCR) Not Detected (Not Detectd) 11/12/23 10:02 Influenza Type B (PCR) Not Detected (Not Detectd) 11/12/23 10:02 RSV (PCR) Not Detected (Not Detectd) 11/12/23 10:02 SARS-CoV-2 (PCR) Not Detected (Not Detectd) 11/12/23 10:02 Vital Signs Temp 97.2 F L 11/16/23 09:09 Pulse 111 H 11/16/23 09:09 Resp 18 11/16/23 09:09 BP 102/55 11/16/23 09:09 Pulse Ox 98 11/16/23 09:09 FiO2 Patient Condition at Discharge: Stable Plan - Discharge Summary Discharge Rx Participant: No New Discharge Prescriptions: New traZODone HCL [Desyrel] 25 mg PO HS PRN 30 Days #15 tab PRN Reason: Insomnia Ibuprofen [Motrin] 600 mg PO Q6HR PRN tab PRN Reason: Moderate Pain (Scale 4 To 6) DULoxetine HCL [Cymbalta] 60 mg PO DAILY 30 Days #30 cap Continue Furosemide [Lasix] 20 mg PO DAILY PRN PRN Reason: Edema Cyclobenzaprine [Flexeril] 5 mg PO DAILY Gabapentin [Neurontin] 800 mg PO BID amLODIPine [Norvasc] 10 mg PO DAILY Simvastatin [Zocor] 10 mg PO HS Lisinopril-Hctz 20-25 mg [Zestoretic 20-25] 1 tab PO DAILY Folic Acid 1 mg PO DAILY Discontinued DULoxetine HCL [Cymbalta] 30 mg PO DAILY Discharge Medication List Cyclobenzaprine [Flexeril] 5 mg PO DAILY 11/12/23 [History] Folic Acid 1 mg PO DAILY 11/12/23 [History] Furosemide [Lasix] 20 mg PO DAILY PRN 11/12/23 [History] Gabapentin [Neurontin] 800 mg PO BID 11/12/23 [History] Lisinopril-Hctz 20-25 mg [Zestoretic 20-25] 1 tab PO DAILY 11/12/23 [History] Simvastatin [Zocor] 10 mg PO HS 11/12/23 [History] amLODIPine [Norvasc] 10 mg PO DAILY 11/12/23 [History] DULoxetine HCL [Cymbalta] 60 mg PO DAILY 30 Days #30 cap 11/16/23 [Rx] Ibuprofen [Motrin] 600 mg PO Q6HR PRN tab 11/16/23 [Rx] traZODone HCL [Desyrel] 25 mg PO HS PRN 30 Days #15 tab 11/16/23 [Rx] Follow up Appointment(s)/Referral(s): [facility][1] [NON-STAFF] - 11/22/23 11:30 am ([address] [place] [address] Intake with [facility]) George Barnard MD [Primary Care Provider] - 1-2 days Patient Instructions/Handouts: Stress (DC), Depression (DC), At-Risk Alcohol Use (DC) Activity/Diet/Wound Care/Special Instructions: Avoid the use of street drugs and alcohol. Take all medications as prescribed. When you are in need of refills on your medications, please contact your medical provider and/or outpatient psychiatrist/provider to have this done. Please go to your scheduled outpatient appointment for aftercare treatment. If symptoms return or become worse, call the crisis line at and/or go to the nearest emergency room for evaluation. National Suicide Hotline 988. Discharge/Stand Alone Forms: Meetings [place] Discharge Disposition: HOME SELF-CARE
[2023-11-16 11:00] VITALS: BP 114/55
== END 2023-11-16 14:02 | disposition home or self-care (01) | DRG 754 ==
LOC: EC 23:18 → 3MHU 11-12 14:47
PROVIDERS: ADMIT Psychiatry & Neurology Psychiatry; ATTEND Psychiatry & Neurology Psychiatry
DX: F32.9 Major depressive disorder, single episode, unspecified (principal); F43.23 Adjustment disorder with mixed anxiety and depressed mood; Z71.89 Other specified counseling; R45.851 Suicidal ideations; Z11.52 Encounter for screening for COVID-19; G89.29 Other chronic pain; M79.2 Neuralgia and neuritis, unspecified; M54.9 Dorsalgia, unspecified; Z87.891 Personal history of nicotine dependence; Z56.0 Unemployment, unspecified; F10.10 Alcohol abuse, uncomplicated; Z71.41 Alcohol abuse counseling and surveillance of alcoholic; Z79.899 Other long term (current) drug therapy; F45.42 Pain disorder with related psychological factors
CPT/HCPCS: 36415; 80048; 80053; 80306; 81003; 82075; 84443; 85025; 87636; 99285